=== PATIENT | female | born 1990 | race Caucasian/White ===

== ENCOUNTER 2025-02-13 16:17 | Outpatient (CLI) | payer BC, SELFPAY ==
--- NOTE | ~2025-02-13 | XR_ITS ---
EXAMINATION: XR chest 2V Exam Date/Time: 02/13/2025 16:29 CDT HISTORY: cough, CP to both sides of chest Comparison: None. RESULT: Lines, tubes, and devices: None. Lungs and pleura: Clear. Cardiomediastinal silhouette: Unremarkable. Other: No acute osseous or upper abdominal finding. IMPRESSION: No acute cardiopulmonary process. Reviewed, dictated and finalized at location K.
--- OUTSIDE RECORDS SUMMARY | 2025-02-13 16:27 | XMS_ITS | Data Portability ---
Author Organization [facility], Main Office Address [address] [place] [address] Assessment No assessment recorded. Plan of Treatment Reminders Order Date Submit Date Provider Last Modified By Organization Details Last Modified Time Details Appointments Sick/Acu te 2024 03:30P MARLENY Balderas Not available Not available Not available Follow Up 15 2024 08:00A MARLENY Balderas Not available Not available Not available Lab BMP, serum or plasma 2022 023 LEDY Not available 06/03/2023 11:45:29 lipid panel, serum 2022 023 LEDY Not available 06/03/2023 11:45:28 Referral None recorded . Procedures None recorded . Surgeries None recorded . Imaging XR, chest, 2 view 2024 025 [email or web address] [facility], [address] [place] [address] [place] [address], [address], 02/13/2025 16:56:58 electroc ardiogra m, routine ECG, 12 leads min 2024 025 ATHENAFAX [facility], [facility] [address] [place] [address], [address], 02/13/2025 17:00:51 Medication Orders lisinopr il 20 mg tablet 2024 025 LEDY [facility], [address] [place], [id number], 02/13/2025 17:12:22 buspiron e 10 mg tablet 2022 023 [email or web address] [facility], [address] , [place], [id number], 02/13/2025 16:28:17 Patient TargetsNo targets recorded. Patient InstructionsNo instructions recorded. Reason for Referral None Reported. Results Created Date Observation Date Name Description Value Unit Range Abnormal Flag Note LastModifiedBy Organization Detail LastModifiedTime 06/03/2006/03/2023 LIPID PANEL , STAND JOAO cholesterol, total 258 mg/dL <200 high Not Available [facility] [address] [address] [place], [address], 06/03/2023 11:45:28 06/03/2006/03/2023 LIPID PANEL , STAND JOAO HDL cholesterol 54 mg/dL > or = 50 normal Not Available [facility] [address], [address], 06/03/2023 11:45:28 06/03/2006/03/2023 LIPID PANEL , STAND JOAO triglyceride s 287 mg/dL <150 high If a non-f astin g speci men was colle cted, consi shantell repea t trigl yceri de testi ng on a fasti ng speci men if clini guanaco indic ated. Ray hammer et al. J. of Clin. Lipid ol. 2015; 9:129 -169. Not Available [facility] [address], [address], 06/03/2023 11:45:28 06/03/2006/03/2023 LIPID PANEL , STAND JOAO LDL-choleste rol 157 mg/dL _(fredy c) high Refer ence range : <100 Sheree able range <100 mg/dL for prima ry preve ntion ; <70 mg/dL for patie nts with CHD or diabe tic patie nts with > or = 2 CHD risk facto rs. LDL-C is now calcu lated using the [facility] n-Hop kins isac almanza, which is a valid ated novel kahlil lujante r accur acy than the Fried shivam equat ion in the estim ation of LDL-C . Patricia n SS et al. STEFANI. 2013; 310(1 9): 2061- 2068 (http ://ed ucati on.Qu geovanniPaola ranulfoThreatStream. com/f aq/FA Q164) Not Available [address] [address] [place], [address], 06/03/2023 11:45:28 06/03/2006/03/2023 LIPID PANEL , STAND JOAO chol/HDLC ratio 4.8 (calc ) <5.0 normal Not Available [address], [address], 06/03/2023 11:45:28 06/03/2006/03/2023 LIPID PANEL , STAND JOAO non HDL cholesterol 204 mg/dL _(fredy c) <130 high For patie nts with diabe familia plus 1 major ASCVD risk facto r, treat ing to a non-H DL-C goal of <100 mg/dL (LDL- C of <70 mg/dL ) is consi logan delacruz n. Not Available [address] [address] [place], [address], 06/03/2023 11:45:28 06/03/2006/03/2023 BASIC METAB OLIC PANEL glucose 126 mg/dL 65-99 high Fasti ng refer ence inter kristin For someo ne witho ut known diabe familia, a gluco se value >125 mg/dL indic ates that they may have diabe familia and this shoul d be confi rmed with a follo w-up test. Not Available [address], [address], 06/03/2023 11:45:29 06/03/20 23 06/03/2023 BASIC METAB OLIC PANEL urea nitrogen (BUN) 13 mg/dL 7-25 normal Not Available [facility] [address] [place], [address], 06/03/2023 11:45:29 06/03/20 23 06/03/2023 BASIC METAB OLIC PANEL creatinine 0.77 mg/dL 0.50-0 .97 normal Not Available [address], [address], 06/03/2023 11:45:29 06/03/20 23 06/03/2023 BASIC METAB OLIC PANEL eGFR 103 mL/mi n/1.7 3m2 > or = 60 normal Not Available [facility] [address], [address], 06/03/2023 11:45:29 06/03/20 23 06/03/2023 BASIC METAB OLIC PANEL BUN/creatini ne ratio SEE NOTE: (calc ) 6-22 Not Repor meagan: BUN and Creat inine are withi n refer ence range . Not Available [address], [address], 06/03/2023 11:45:29 06/03/20 23 06/03/2023 BASIC METAB OLIC PANEL sodium 137 mmol/ L 135-14 6 normal Not Available [address], [address], 06/03/2023 11:45:29 06/03/20 23 06/03/2023 BASIC METAB OLIC PANEL potassium 3.9 mmol/ L 3.5-5. 3 normal Not Available [address], [address], 06/03/2023 11:45:29 06/03/2006/03/2023 BASIC METAB OLIC PANEL chloride 102 mmol/ L 98-110 normal Not Available [address], [address], 06/03/2023 11:45:29 06/03/20 23 06/03/2023 BASIC METAB OLIC PANEL carbon dioxide 25 mmol/ L 20-32 normal Not Available [facility] [address] [place], [address], 06/03/2023 11:45:29 06/03/20 23 06/03/2023 BASIC METAB OLIC PANEL calcium 9.7 mg/dL 8.6-10 .2 normal Not Available [facility] [address] [address] , [place], [address], 06/03/2023 11:45:29 06/03/20 23 06/03/2023 CLIEN T EDUCA TION TRACK ING client education tracking The Requi sitio n we recei betty did not inclu de a [facility] accou nt numbe r. To preve nt delay s in testi ng and proce ssing of your order s pleas e provi de the follo wing infor matio n with every order submi tted: [facility] accou nt numbe r and accou nt name Clien t addre ss Clien t phone and fax numbe r NPI numbe r of order ing physi román along with the physi román name. NO COLLE CTION DATE RECEI BETTY. WE HAVE USED THE DATE THE SPECI MEN WAS RECEI BETTY BY THIS LABOR ATORY THE COLLE CTION DATE. IF THIS IS INCOR RECT, PLEAS E CONTA CT CLIEN T SERVI YAMEL. PHONE NUMBE R: [phone] Not Available [facility] [address] [place], [address], 06/03/2023 11:45:30 07/31/20 21 07/31/2021 HEMOG LOBIN A1C HA1C 5.2 % 4.0-6. 0 Diabe familia Scree ann Crite dionte: <5.7% Consi stent with absen ce of diabe familia 5.7-6 .4% Consi stent with incre ased risk for diabe familia (pred iabet es) >OR=6 .5% Consi stent with diabe familia REFER ENCE: Diabe familia Care 2016, 39(Lala ppl.1 ):s13 -s22 Not Available [facility] (Lab) [address] [place], [address], 07/31/2021 21:38:31 07/31/20 21 07/31/2021 TSH W/REF MARIA E FT4 TSH with reflex free T4 1.410 uIU/m L 0.465- 4.680 Not Available [facility] (Lab) [address] [place], [address], 07/31/2021 21:27:05 07/31/20 21 07/31/2021 VITAM IN D 25-HY DROXY [id number] 33.6 NG/mL 30-100 Vitam in D Statu s: Defic ient: <20 ng/mL Insuf ficie nt: 20-29 ng/mL Suffi cient : 30-10 0 ng/mL Not Available [facility] (Lab) [address] [place], [address], 07/31/2021 21:02:06 07/31/20 21 07/31/2021 LIPID PANEL cholesterol 234 mg/dL 140-19 9 high NIH HALIMA NSUS RECOM MENDA TION FOR BARBARA STERO L: ADULT CHILD LOW RISK: <200 <170 BORDE RLINE : <200- 239 ----- HIGH RISK: >240 >200 Not Available [facility] (Lab) [address] [place], [address], 07/31/2021 20:53:53 07/31/20 21 07/31/2021 LIPID PANEL triglyceride s 158 mg/dL 0-150 high NIH HALIMA NSUS REPOR T RECOM MENDA TION FOR TRIGL YCERI WILMAR: ADULT CHILD LOW RISK: <150 ----- BODER LINE: 150-1 99 ----- HIGH RISK: >200 ----- Not Available [facility] (Lab) [address] [place], [address], 07/31/2021 20:53:53 07/31/20 21 07/31/2021 LIPID PANEL HDL cholesterol 54 mg/dL 40- Not Available [facility] (Lab) [address] [place], [address], 07/31/2021 20:53:53 07/31/20 21 07/31/2021 LIPID PANEL LDL cholesterol, calculated 148 mg/dL 0-130 high NIH HALIMA NSUS REPOR T RECOM MENDA TIONS FOR LDL: ADULT CHILD LOW RISK <130 <110 (OPTI MAL LDL) <100 ----- BORDE RLINE : 130-1 59 ----- HIGH RISK: >160 >130 A TRIGL YCERI DE RESUL T >400 INVAL IDATE S THE CALCU LATIO N FOR LDL FRACT IONAT ION - THE LDL RESUL T WILL NOT BE REPOR MEAGAN. Not Available [facility] (Lab) [address] [place], [address], 07/31/2021 20:53:53 07/31/20 21 07/31/2021 COMPR EHENS ZO METAB OLIC PANEL sodium 136 mmol/ L 137-14 5 low Not Available [facility] (Lab) [address] [place], [address], 07/31/2021 20:53:50 07/31/20 21 07/31/2021 COMPR EHENS ZO METAB OLIC PANEL potassium 5.5 mmol/ L 3.5-5. 1 high Not Available [facility] (Lab) [address] [place], [address], 07/31/2021 20:53:50 07/31/20 21 07/31/2021 COMPR EHENS ZO METAB OLIC PANEL chloride 102 mmol/ L 98-107 Not Available [facility] (Lab) [address] [place], [address], 07/31/2021 20:53:50 07/31/20 21 07/31/2021 COMPR EHENS ZO METAB OLIC PANEL carbon dioxide 28 mmol/ L 22-30 Not Available [facility] (Lab) [address] [place], [address], 07/31/2021 20:53:50 07/31/20 21 07/31/2021 COMPR EHENS ZO METAB OLIC PANEL agap 11.5 mmol/ L 14-22 low Not Available [facility] (Lab) [address] [place], [address], 07/31/2021 20:53:50 07/31/20 21 07/31/2021 COMPR EHENS ZO METAB OLIC PANEL glucose 95 mg/dL 70-99 Not Available [facility] (Lab) [address] [place], [address], 07/31/2021 20:53:50 07/31/20 21 07/31/2021 COMPR EHENS ZO METAB OLIC PANEL BUN 10 mg/dL 8-19 Not Available [facility] (Lab) [address] [place], [address], 07/31/2021 20:53:50 07/31/20 21 07/31/2021 COMPR EHENS ZO METAB OLIC PANEL creatinine 0.74 mg/dL 0.66-1 .25 Not Available [facility] (Lab) [address] [place], [address], 07/31/2021 20:53:50 07/31/20 21 07/31/2021 COMPR EHENS ZO METAB OLIC PANEL GFR >60 Refer ence Range : [place] ge GFR Healt hy Adult : >60 mL/mi n/1.7 3 m2 Chron ic Kidne y Disea se: 15-60 mL/mi n/1.7 3 m2 Kidne y Failu re: <15/m L/min /1.73 m2 www.n iddk. nih.g ov MDRD study equat ion hasn' t been valid ated in child margoth <18 yrs of age, pregn ant women , the elder ly >85 yrs of age, or in some racia l or ethni c subgr oups, such as Hispa nics. Outsi de the valid ated ki eters , estim ated GFR is less accur ate requi ring clini fredy judgm ent on a case by case basis . Clini fredy inter preta tion for other races and ages must be made by the clini román . Futhe rmore , any of the limit ation s with the use of serum creat inine relat ed to nutri luanne l statu s or medic ation usage hasn' t accou nted for the MDRD Study equat ion. For perso ns <18 yrs of age, a pedia tric GFR calcu lator can be locat ed on the [facility] websi te: https ://elvia w.kid shani.o rg/pr ofess ional s/kdo qi/gf r_cal culat or Not Available [facility] (Lab) [address] [place], [address], 07/31/2021 20:53:50 07/31/20 21 07/31/2021 COMPR EHENS ZO METAB OLIC PANEL alkaline phosphatase 110 U/L 38-126 Not Available [facility] (Lab) [address] [place], [address], 07/31/2021 20:53:50 07/31/20 21 07/31/2021 COMPR EHENS ZO METAB OLIC PANEL alanine aminotransfe rase 22 U/L 0-35 Not Available [facility] (Lab) [address] [place], [address], 07/31/2021 20:53:50 07/31/20 21 07/31/2021 COMPR EHENS ZO METAB OLIC PANEL aspartate aminotransfe rase 30 U/L 15-37 Not Available [facility] (Lab) [address] [place], [address], 07/31/2021 20:53:50 07/31/20 21 07/31/2021 COMPR EHENS ZO METAB OLIC PANEL bilirubin, total 0.70 mg/dL 0.20-1 .30 Not Available [facility] (Lab) [address] [place], [address], 07/31/2021 20:53:50 07/31/20 21 07/31/2021 COMPR EHENS ZO METAB OLIC PANEL calcium 10.2 mg/dL 8.4-10 .2 Not Available [facility] (Lab) [address] [place], [address], 07/31/2021 20:53:50 07/31/20 21 07/31/2021 COMPR EHENS ZO METAB OLIC PANEL total protein 8.0 g/dL 6.3-8. 2 Not Available [facility] (Lab) [address] [place], [address], 07/31/2021 20:53:50 07/31/20 21 07/31/2021 COMPR EHENS ZO METAB OLIC PANEL albumin 4.5 g/dL 3.4-5. 0 Not Available [facility] (Lab) [address] [place], [address], 07/31/2021 20:53:50 07/31/20 21 07/31/2021 COMPR EHENS ZO METAB OLIC PANEL globulin 3.5 g/dL 2.6-4. 2 Not Available [facility] (Lab) [address] [place], [address], 07/31/2021 20:53:50 07/31/20 21 07/31/2021 COMPR EHENS ZO METAB OLIC PANEL A/G ratio 1.3 ratio 1.0-2. 0 Not Available [facility] (Lab) [address] [place], [address], 07/31/2021 20:53:50 07/31/20 21 07/31/2021 TEST NOT PERFO RMED tnp see commen t NO URINE SPECI MEN RECD Not Available [facility] (Lab) [address] [place], [address], 07/31/2021 20:08:02 07/31/20 21 07/31/2021 CBC/C OMPLE TE BLD COUNT W/DIF F white blood cells 10.9 x10'3 /uL 4.2-10 .8 high Not Available [facility] (Lab) [address] [place], [address], 07/31/2021 19:41:24 07/31/20 21 07/31/2021 CBC/C OMPLE TE BLD COUNT W/DIF F red blood cells 5.31 x10'6 /uL 3.80-5 .20 high Not Available [facility] (Lab) [address] [place], [address], 07/31/2021 19:41:24 07/31/20 21 07/31/2021 CBC/C OMPLE TE BLD COUNT W/DIF F hemoglobin 16.5 g/dL 12.0-1 5.6 high Not Available [facility] (Lab) [address] [place], [address], 07/31/2021 19:41:24 07/31/20 21 07/31/2021 CBC/C OMPLE TE BLD COUNT W/DIF F hematocrit 49.8 % 35.7-4 5.7 high Not Available [facility] (Lab) [address] [place], [address], 07/31/2021 19:41:24 07/31/20 21 07/31/2021 CBC/C OMPLE TE BLD COUNT W/DIF F mean red cell volume 93.8 fL 82.0-9 9.0 Not Available [facility] (Lab) [address] [place], [address], 07/31/2021 19:41:24 07/31/20 21 07/31/2021 CBC/C OMPLE TE BLD COUNT W/DIF F mean red cell hemoglobin 31.1 pg 27.0-3 3.0 Not Available [facility] (Lab) [address] [place], [address], 07/31/2021 19:41:24 07/31/20 21 07/31/2021 CBC/C OMPLE TE BLD COUNT W/DIF F mean RBC HGB concentratio n 33.1 g/dL 31.0-3 6.0 Not Available [facility] (Lab) [address] [place], [address], 07/31/2021 19:41:24 07/31/20 21 07/31/2021 CBC/C OMPLE TE BLD COUNT W/DIF F red cell distribution width 12.4 % 11.8-1 5.5 Not Available [facility] (Lab) [address] [place], [address], 07/31/2021 19:41:24 07/31/20 21 07/31/2021 CBC/C OMPLE TE BLD COUNT W/DIF F platelets 344 x10'3 /uL 150-40 0 Not Available [facility] (Lab) [address] [place], [address], 07/31/2021 19:41:24 07/31/20 21 07/31/2021 CBC/C OMPLE TE BLD COUNT W/DIF F mean platelet volume 10.5 fL 9.0-12 .4 Not Available [facility] (Lab) [address] [place], [address], 07/31/2021 19:41:24 07/31/20 21 07/31/2021 CBC/C OMPLE TE BLD COUNT W/DIF F neutrophils 73.0 % 39.0-7 2.0 high Not Available [facility] (Lab) [address] [place], [address], 07/31/2021 19:41:24 07/31/20 21 07/31/2021 CBC/C OMPLE TE BLD COUNT W/DIF F lymphocytes 18.9 % 16.0-4 7.0 Not Available [facility] (Lab) [address] [place], [address], 07/31/2021 19:41:24 07/31/20 21 07/31/2021 CBC/C OMPLE TE BLD COUNT W/DIF F monocytes 6.0 % 5.0-12 .0 Not Available [facility] (Lab) [address] [place], [address], 07/31/2021 19:41:24 07/31/20 21 07/31/2021 CBC/C OMPLE TE BLD COUNT W/DIF F eosinophils 0.9 % 1.0-7. 0 low Not Available [facility] (Lab) [address] [place], [address], 07/31/2021 19:41:24 07/31/20 21 07/31/2021 CBC/C OMPLE TE BLD COUNT W/DIF F basophils 0.6 % 0.0-2. 0 Not Available [facility] (Lab) [address] [place], [address], 07/31/2021 19:41:24 07/31/2007/31/2021 CBC/C OMPLE TE BLD COUNT W/DIF F immature granulocytes 0.6 % 0.00-0 .50 high Not Available [facility] (Lab) [address] [place], [address], 07/31/2021 19:41:24 07/31/20 21 07/31/2021 CBC/C OMPLE TE BLD COUNT W/DIF F neutrophils, absolute count 7.94 x10'3 /uL 1.5-8. 0 Not Available [facility] (Lab) [address] [place], [address], 07/31/2021 19:41:24 07/31/20 21 07/31/2021 CBC/C OMPLE TE BLD COUNT W/DIF F lymphocytes, absolute count 2.05 x10'3 /uL 1.07-3 .43 Not Available [facility] (Lab) [address] [place], [address], 07/31/2021 19:41:24 07/31/20 21 07/31/2021 CBC/C OMPLE TE BLD COUNT W/DIF F monocytes, absolute count 0.65 x10'3 /uL 0.29-0 .99 Not Available [facility] (Lab) [address] [place], [address], 07/31/2021 19:41:24 07/31/20 21 07/31/2021 CBC/C OMPLE TE BLD COUNT W/DIF F eosinophils, absolute count 0.10 x10'3 /uL 0.02-0 .53 Not Available [facility] (Lab) [address] [place], [address], 07/31/2021 19:41:24 07/31/20 21 07/31/2021 CBC/C OMPLE TE BLD COUNT W/DIF F basophils, absolute count 0.06 x10'3 /uL 0.01-0 .08 Not Available [facility] (Lab) [address] [place], [address], 07/31/2021 19:41:24 07/31/20 21 07/31/2021 CBC/C OMPLE TE BLD COUNT W/DIF F immature granulocytes ,absolute 0.06 x10'3 /uL 0.00-0 .05 high Not Available [facility] (Lab) [address] [place], [address], 07/31/2021 19:41:24 07/31/20 21 07/31/2021 CBC/C OMPLE TE BLD COUNT W/DIF F nucleated red blood cells 0.0 % -0 Not Available [facility] (Lab) [address] [place], [address], 07/31/2021 19:41:24 07/31/20 21 07/31/2021 CBC/C OMPLE TE BLD COUNT W/DIF F NRBC# 0.00 x10'3 /uL Not Available [facility] (Lab) [address], [place], [address], 07/31/2021 19:41:24 Result Notes None recorded. Problems Name Problem SNOMED Code Status Onset Date Resolution Date Notes Provider Name and Address Organization Details Recorded Time Hyperkalem ia 11620067 Active 2020 Not Available [facility] 3 07:30:24 Acute sinusitis 14642337 Completed Not Available [facility] 3 07:30:25 Pain in throat 778918217 Completed Not Available [facility] 3 07:30:25 Suppressio n of menstruati on Completed Not Available [facility] 3 07:30:25 Iron deficiency anemia of 808716933 Completed Not Available [facility] 3 07:30:25 Gastroesop hageal reflux disease 612222847 Completed Not Available [facility] 3 07:30:25 Overweight 187922043 Active 2020 Not Available [facility] 3 07:30:25 Tampon retained in vagina 393029478 Completed Not Available [facility] 3 07:30:25 Dog bite of hand 766166191 Completed Not Available [facility] 3 07:30:25 Hypertrigl yceridemia 171237837 Active 2020 Not Available [facility] 3 07:30:25 Acute urinary tract infection 086408205 Completed Not Available [facility] 3 07:30:26 Cough 22406098 Completed Sybil Ahuja MD [address] [facility], [facility] [address], [place], [address] , [facility] [employer] 3 17:56:43 Hyperlipid emia 22634086 Active 2020 Not Available [facility] 3 07:30:26 Posterior rhinorrhea 65705947 Completed Not Available [facility] 3 07:30:26 Smoker 35846967 Active 2020 Not Available [facility] 3 07:30:26 Irregular periods 16466115 Active Not Available [facility] 3 07:30:26 Generalize d aches and pains 46584424 Completed 201608/30/2019 Not Available [facility] 3 07:30:26 Elevated blood-pres sure reading without diagnosis of hypertensi on 825384518 Active 2022 Sybil Ahuja MD [address], [place], [address] , [employer] 3 10:10:02 Anxiety 95229428 Active 2022 Sybil Ahuja MD [address], [place], [address] , [employer] 3 10:19:52 Laceration of lower leg 516137387 Active 2022 Sybil Ahuja MD [address], [place], [address] , [employer] 3 10:23:48 Cough 60480495 Active 2022 Sybil Ahuja MD [address], [place], [address] , [employer] 3 17:56:43 Essential hypertensi on 19424699 Active 2024 MARLENY Keith [address], [address], [place], [address] , [employer] 5 16:48:17 Atypical chest pain 763398148 Active 2024 MARLENY Keith [address], [place], [address] , [employer] 5 16:51:11 Problem Notes None recorded. Procedures Surgical History Date Name Laterality Status Provider Name and Address Organization Details Recorded Time 09/09/20 REHABILITATION SERVICES MANAGER Procedure completed Not Available [facility] 2022 07:26:28 04/04/20 19 Date of Last Pap Smear completed Not Available [facility] 11/25/2022 07:26:26 11/27/19 16 Plastic Surgery completed Not Available [facility] 09/2022 07:26:28 09/13/20 15 REHABILITATION SERVICES MANAGER Procedure completed Not Available [facility] 2022 07:26:28 02/14/20 04 Colposcopy completed Not Available [facility] 07:26:28 Tonsillectomy completed Not Available [facility] 11/25/2022 07:26:28 extraction of wisdom tooth completed Sybil Ahuja MD [address] [facility], [facility] [address], [place], [address], [facility] [employer] 06/02/2023 10:06:40 Imaging Results None recorded. Procedure Notes None recorded. Medical Equipment None Reported. Allergies No known drug allergies Medications Name Sig Start Date Stop Date Status Note LastModified by Organization Details LastModified Time amoxicillin 500 mg capsule active Not Available Not Available Not Available Mirena 21 mcg/24 hr (up to 8 years) 52 mg intrauterin e device Take 1 device by intrauter ine route. active Not Available Not Available No t Available Augmentin 875 mg-125 mg tablet Take 1 tablet every 12 hours by oral route. 07/01 completed Not Available Not Available Not Available clindamycin HCl 300 mg capsule Take 1 capsule every 6 hours by oral route for 10 days. active Not Available Not Available No t Available azithromyci n 250 mg tablet take as directed on label. 02/13 completed Not Available Not Available Not Available Cytotec 200 mcg tablet Take 2 tablets every day by oral route for 1 day. active Not Available Not Available No t Available hydrocodone 5 mg-acetamin ophen 325 mg tablet active Not Available Not Available No t Available Celestone Soluspan 6 mg/mL suspension for injection active Not Available Not Available No t Available lisinopril 20 mg tablet Take 1 tablet every day by oral route as directed for 30 days. 2024 active Not Available Not Available Not Avai lable promethazin e 6.25 mg-codeine 10 mg/5 mL syrup Take 5 mL every 6-8 hours by oral route as directed for 10 days. active Not Available Not Available No t Available metronidazo le 500 mg tablet active Not Available Not Available Not Available amoxicillin 500 mg tablet Take 1 tablet every 12 hours by oral route for 10 days. active Not Available Not Available No t Available benzonatate 100 mg capsule Take 1 capsule 3 times a day by oral route as needed. active Not Available Not Available No t Available oseltamivir 75 mg capsule 04/16 completed Not Available Not Available Not Available ferrous sulfate 325 mg (65 mg iron) tablet Take 1 tablet twice a day by oral route. active Not Available Not Available No t Available buspirone 10 mg tablet TAKE 1 TABLET BY MOUTH TWICE DAILY NEEDED 02/13 completed Not Available Not Available Not Available ceftriaxone 500 mg solution for injection active [facility]#: [id number]- [id number]- 01/ XYLOC ROMEO: LOT#: [id number] EXP: 01/14 18 [facility]#: [id number] [id number] [phone] Not Available Not Available Not Available Pepcid 20 mg tablet Take 1 tablet twice a day by oral route. active Not Available Not Available No t Available fluticasone propionate 50 mcg/actuati on nasal spray,suspe nsion INHALE 1 SPRAY INTO EACH NOSTRIL TWICE DAILY 04/16 completed Not Available Not Available Not Available TriNessa (28) 0.18 mg(7)/0.215 mg(7)/0.25 mg(7)-35 mcg tablet active Not Available Not Available N ot Available nitrofurant oin monohydrate /macrocryst als 100 mg capsule TK 1 C PO Q 12 H FOR 7 DAYS 08/30 completed Not Available Not Available Not Available Mucinex DM 30 mg-600 mg tablet,exte nded release 12 hr Take 1 tablet every 12 hours by oral route as directed for 15 days. active Not Available Not Available No t Available Boostrix Tdap 2.5 Lf unit-8 mcg-5 Lf/0.5 mL intramuscul ar syringe 07/01 completed Not Available Not Available Not Available Mirena 02/23 completed Not Available Not Available Not Available 19 (with docusate) 29 mg iron-1 mg-25 mg tablet Take 1 tablet by oral route. active Not Available Not Available No t Available Vitals Date Recorded Body mass index (BMI) Body height Oxygen saturation Oxygen saturation in Arterial blood by Pulse oximetry Heart rate Respiratory rate Body temperature Body weight Systolic blood pressure Diastolic blood pressure Provider Name and Address Organization Details Last Updated DateTime 1 27.2 kg/m2 175.26 cm 99 % 99 % 94 /min 18 /min 98 [degF] 33452 g 130 mm[Hg] 80 mm[Hg] Not Available [facility] 3 07:26:40 Date Recorded Body weight Body mass index (BMI) Body height Body temperature Heart rate Oxygen saturation Oxygen saturation in Arterial blood by Pulse oximetry Systolic blood pressure Diastolic blood pressure Provider Name and Address Organization Details Last Updated DateTime 3 29382.8 9 g 25.4 kg/m2 175.26 cm 98.3 [degF] 101 /min 94 % 94 % 170 mm[Hg] 104 mm[Hg] Julianne Moreno RN [place] [facility] 3 09:45:23 Date Recorded Body weight Body mass index (BMI) Body height Body temperature Heart rate Respiratory rate Oxygen saturation Oxygen saturation in Arterial blood by Pulse oximetry Systolic blood pressure Diastolic blood pressure Provider Name and Address Organization Details Last Updated DateTime 5 04075.7 7 g 27.6 kg/m2 175.26 cm 98.4 [degF] 125 /min 24 /min 96 % 96 % 220 mm[Hg] 140 mm[Hg] Dorothy Grimaldo RN [place] [facility] 5 16:34:22 Social History Question Answer Notes LastModified by Organizat ion Details LastModified Time Tobacco Smoking Status Current Every Day Smoker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
--- OUTSIDE RECORDS SUMMARY | 2025-02-13 16:27 | XMS_ITS | Continuity of Care Document ---
Author Organization [place] [facility] [employer], [facility] Address [address] [place] [address] Assessment No assessment recorded. Plan of Treatment Reminders Order Date Submit Date Provider Last Modified By Organization Details Last Modified Time Details Appointments Sick/Acu te 2024 03:30P MARLENY Balderas Not available Not available Not available Follow Up 15 2024 08:00A MARLENY Balderas Not available Not available Not available Lab None recorded . Referral None recorded . Procedures None recorded . Surgeries None recorded . Imaging XR, chest, 2 view 2024 025 [email or web address] [facility], [address] [place] [address], [id number], 02/13/2025 16:56:58 electroc ardiogra m, routine ECG, 12 leads min 2024 025 [facility], [address] [place] [address], [id number], 02/13/2025 17:00:51 Medication Orders lisinopr il 20 mg tablet 2024 025 [facility], [address] [place] [place], [id number], 02/13/2025 17:12:22 Patient TargetsNo targets recorded. Patient InstructionsNo instructions recorded. Reason for Referral None Reported. Problems Name Problem SNOMED Code Status Onset Date Resolution Date Notes Provider Name and Address Organization Details Recorded Time Hyperkalem ia 46767443 Active 2020 Not Available [facility] 3 07:30:24 Acute sinusitis 81781358 Completed Not Available [facility] 3 07:30:25 Pain in throat 150145773 Completed Not Available [facility] 3 07:30:25 Suppressio n of menstruati on 002824197 Completed Not Available [facility] 3 07:30:25 Iron deficiency anemia of 944815390 Completed Not Available [facility] 3 07:30:25 Gastroesop hageal reflux disease 994982428 Completed Not Available [facility] 3 07:30:25 Overweight 965788379 Active 2020 Not Available [facility] 3 07:30:25 Tampon retained in vagina 733361896 Completed Not Available [facility] 3 07:30:25 Dog bite of hand 214575316 Completed Not Available [facility] 3 07:30:25 Hypertrigl yceridemia 612406872 Active 2020 Not Available [facility] 3 07:30:25 Acute urinary tract infection 129168313 Completed Not Available [facility] 3 07:30:26 Cough 24592907 Completed Sybil Ahuja MD [address] [place] [address], [phone] , [facility] [employer] [facility] 3 17:56:43 Hyperlipid emia 84682303 Active 2020 Not Available [facility] 3 07:30:26 Posterior rhinorrhea 47179643 Completed Not Available [facility] 3 07:30:26 Smoker 65410144 Active 2020 Not Available [facility] 3 07:30:26 Irregular periods 53062776 Active Not Available [facility] 3 07:30:26 Generalize d aches and pains 44475696 Completed 201608/30/2019 Not Available [facility] 3 07:30:26 Elevated blood-pres sure reading without diagnosis of hypertensi on 376279501 Active 2022 Sybil Ahuja MD [address], [place], [address] , [employer] 3 10:10:02 Anxiety 68492938 Active 2022 Sybil Ahuja MD [address], [place], [address] , [employer] 3 10:19:52 Laceration of lower leg 813722346 Active 2022 Sybil Ahuja MD [address], [place], [address] , [employer] 3 10:23:48 Cough 74736324 Active 2022 Sybil Ahuja MD [address], [place], [address] , [employer] 3 17:56:43 Essential hypertensi on 26183920 Active 2024 MARLENY Keith [address], [place], [address] , [employer] 5 16:48:17 Atypical chest pain 691880677 Active 2024 MARLENY Keith [address], [place], [address] , [employer] 5 16:51:11 Problem Notes None recorded. Procedures Surgical History Date Name Laterality Status Provider Name and Address Organization Details Recorded Time 09/09/20 20 GARBAGE DEPOT WORKER Procedure completed Not Available [facility] 2022 07:26:28 04/04/20 19 Date of Last Pap Smear completed Not Available [facility] 11/25/2022 07:26:26 11/27/19 16 Plastic Surgery completed Not Available [facility] 09/2022 07:26:28 09/13/20 15 [employer] DEPOT WORKER Procedure completed Not Available [facility] 2022 07:26:28 02/14/20 04 Colposcopy completed Not Available [facility] 3 07:26:28 Tonsillectomy completed Not Available [facility] 11/25/2022 07:26:28 extraction of wisdom tooth completed Sybil Ahuja MD [address] [facility], [facility] [address], [place], [address], [facility] 06/02/2023 10:06:40 Imaging Results None recorded. Procedure [...] ceftriaxone 500 mg solution for injection active [facility]#: [id number] 7338- 01/ XYLOC ROMEO: LOT#: [id number] EXP: 01/14 18 [facility]#: [id number] Not Available Not Available Not [...] No t Available Vitals Date Recorded Body weight Body mass index (BMI) Body height Body temperature Heart rate Respiratory rate Oxygen saturation Oxygen saturation in Arterial blood by Pulse oximetry Systolic blood pressure Diastolic blood pressure Provider Name and Address Organization Details Last Updated DateTime 5 67873.7 7 g 27.6 kg/m2 175.26 cm 98.4 [degF] 125 /min 24 /min 96 % 96 % 220 mm[Hg] 140 mm[Hg] Dorothy Grimaldo RN [place] [facility] [place] [employer] 5 16:34:22 Social History Question Answer Notes LastModified by Organizat ion Details LastModified Time Tobacco Smoking Status Current Every Day Smoker Not Available [facility] 11/25/2022 07:26:07 Do You Have An Advance Directive? No MIGRATION.[id number] Information not available 11/25/2022 Do You Wear A Helmet When Biking? No MIGRATION.846936 5177 Information not available 11/25/2022 What Is Your Level Of Caffeine Consumption? Moderate MIGRATION.793945 0317 Information not available 11/25/2022 In The 14 Days Before Symptom Onset, Have You Had Close Contact With A Laboratory-confirm ed COVID-19 While That Case Was Ill? No MIGRATION.500144 6903 Information not available 11/25/2022 In The 14 Days Before Symptom Onset, Have You Had Close Contact With A Person Who Is Under Investigation For COVID-19 While That Person Was Ill? No MIGRATION.394651 3732 Information not available 11/25/2022 What Type Of Diet Are You Following? REGULAR MIGRATION.866196 1266 Information not available 11/25/2022 Have There Been Any Changes To Your Family Or Social Situation? No MIGRATION.839606 8743 Information not available 11/25/2022 Are There Any Guns Present In Your Home? No MIGRATION.428376 8486 Information not available 11/25/2022 Do You Use Insect Repellent Routinely? No MIGRATION.461795 2376 Information not available 11/25/2022 Do You Have A Medical Power Of Senior Business Intelligence Analyst? No MIGRATION.982304 8995 Information not available 11/25/2022 What Was The Date Of Your Most Recent Tobacco Screening? 06/02/2023 [email or web address] Information not available 06/02/2023 Do You Have Any Pets? Yes MIGRATION.998931 0561 Information not available 11/25/2022 What Is Your Relationship Status? MIGRATION.109851 9928 Information not available 11/25/2022 Do You Use Your Seat Belt Or Car Seat Routinely? Yes MIGRATION.541976 4774 Information not available 11/25/2022 Do You Have Smoke And Carbon Monoxide Detectors In Your Home? Yes MIGRATION.447605 5289 Information not available 11/25/2022 At What Age Did You Start Smoking Tobacco? 12 MIGRATION.254388 0030 Information not available 11/25/2022 Are You Passively Exposed To Smoke? Yes MIGRATION.803261 0256 Information not available 11/25/2022 Are There Any Smokers In Your House? Yes MIGRATION.578890 6273 Information not available 11/25/2022 How Much Tobacco Do You Smoke? 1 PPD MIGRATION.838428 8601 Information not available 11/25/2022 Do You Participate In Social Media? Yes MIGRATION.404562 6996 Information not available 11/25/2022 Do You Use Sunscreen Routinely? Yes MIGRATION.015676 3486 Information not available 11/25/2022 Have You Recently Traveled Abroad? No MIGRATION.958693 8939 Information not available 11/25/2022 Sex: Female Functional Status Question Answer Note LastModified by Organizat ion Details LastModified Time Do you use any illicit or recreational drugs? No MIGRATION.7130084 026 Information not available 11/25/2022 Do you or have you ever used any other forms of tobacco or nicotine? No MIGRATION.1371565 026 Information not available 11/25/2022 What is your level of alcohol consumption? 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 Occasional MIGRATION.9141494 026 Information not available 11/25/2022 Mental Status Question Answer Note LastModified by Organizat ion Details LastModified Time Do you feel stressed (tense, restless, nervous, or anxious, or unable to sleep at night)? [id number] MIGRATION.[id number] 6 Information not available 11/25/2022 Family History Relationship Description Onset Age of this Age Resolved Age Notes LastModified by Organization Details LastModified Time Maternal Grandmother Heart disease MIGRATION.828 [id number] Not available 11/25/2022 07:26:29 Maternal Grandmother Diabetes mellitus MIGRATION.972 [id number] Not available 11/25/2022 07:26:29 Maternal Uncle Diabetes mellitus MIGRATION.285 [id number] Not available 11/25/2022 07:26:29 Maternal Uncle Viral hepatitis C MIGRATION.540 [id number] Not available 11/25/2022 07:26:29 Maternal Grandfather Primary malignant neoplasm of lung deceas ed MIGRATION.436 [id number] Not available 11/25/2022 07:26:29 Brother Viral hepatitis C MIGRATION.192 [id number] Not available 11/25/2022 07:26:29 Brother Disease of liver MIGRATION.540 1458908 Not available 11/25/2022 07:26:29 Maternal Aunt Malignant tumor of breast MIGRATION.956 [id number] Not available 11/25/2022 07:26:29 Medical History Condition Response BLINDNESS N RHEUMATIC FEVER N KIDNEY STONES N BLADDER PROBLEMS N MRSA N OTHER # 1 N POLIO N LUNG DISEASE/DISORDER N HISTORY OF DRUG ABUSE N RADIATION / CHEMOTHERAPY N COPD N Other # 2 N BLOOD DISEASES N SURGERY N EAR OR HEARING PROBLEMS N MUMPS N SHINGLES N FEMALE PROBLEMS / INFECTIONS N DEPRESSION (INCLUDING POST ) N BOWEL PROBLEMS N STROKE/TIA N THYROID DISEASE N ULCERS N BENIGN PROSTATIC HYPERPLASIA N MEASLES N CERVICALGIA N TB SKIN TEST N HYPOTENSION N MYOCARDIAL INFARCTION N PARAPELGIA N OBESITY [...] GLAUCOMA N FOOT PROBLEM N DIVERTICULITIS N SLEEP APNEA N CHICKENPOX N ALLERGIES/HAYFEVER N INFECTIOUS DISEASE N PROSTATE N HEART ARRHYTHMIA N INSOMNIA N HIGH CHOLESTEROL / HYPERLIPIDEMIA N EYE PROBLEMS N HYPERTHYROIDISM N EATING DISORDER N EDEMA N CHRONIC PAIN SYNDROME N CAROTID BLOCKAGE N CONSTIPATION N BACK / NECK PROBLEMS N HAVE YOU BEEN HOSPITALIZED OR SEEN IN [facility] IN THE PAST YEAR ? N [...] DISORDER N ALZHEIMER'S DISEASE N PAIN N DEMENTIA N HERPES N SEIZURES/EPILEPSY N HEADACHES/MIGRAINES N VASCULAR DISEASE N PACEMAKER N DIZZINESS N HEART DISEASE/HEART PROBLEMS N KIDNEY DISEASE N SCARLET FEVER N MULTIPLE SCLEROSIS N DEVELOPMENTAL OR BEHAVIORAL DISORDERS N MENTAL DISORDER/ILLNESS N CANCER: SPECIFY N CARDIAC ARRHYTHMIA N PNEUMONIA N ATRIAL FIBRILLATION N Gall [...] Time Tdap 06/02/2023 completed Sybil Ahuja MD [address] [place] [address], [address], [place] [facility] [employer] 06/02/2023 11:59:42 Tdap 09/29/2011 completed Not Available [facility] 11/25/2022 07:36:04 COVID-19 PS Non-US Vaccine (EpiVacCorona ) 12/27/2020 completed Not Available [facility] 3 07:36:05 COVID-19 PS Non-US Vaccine (EpiVacCorona ) 12/06/2020 completed Not Available [facility] 3 07:36:05 Past Encounters Encounter ID Performer Location Encounter Start Date Encounter Closed Date Diagnosis/Indication Diagnosis SNOMED-CT Code Diagnosis ICD10 Code Diagnosis Note [id number] MARLENY Keith [facility] [address] [address] 02/13/2025 16:17:26 02/13/2025 16:56:58 Essential hypertension 76678740 I10 Uncontroll edAdvised to take 1/2 tab x 1 week then increase to 1 tab daily Atypical chest pain 1025 86075 R07.89 Dull ache, associated fatigue, tingling in arms, left arm pain Health Concerns Section Related Observation LastModified by Organization Detai ls LastModified Time None Recorded Concern Status LastModified by Organization Details LastModified Time None Recorded Payers Encounter Date Sequence Insurance Name Policy Number Policy [employer] Covered Member ID [place] Member ID Guarantor Name 02/13/2025 1 [place] [id number] Ariella Keitholl [id number] Ariella Abbie Evgeny Notes Date Note Type Note Provider Name and Address Organization Details Recorded Time 02/13/2025 text/html Ariella Pepper is a 35 year old female [...] Her BP on arrival 220/140. Marta Ramirez, ELECTRIC ARC FURNACE OPERATOR [address] [facility], [facility] [address], [place], [address], [place] [facility] 02/13/2025 16:57:35 OBGyn Episode No OBEpisode recorded.
== END 2025-02-13 16:18 | disposition home or self-care (01) ==
PROVIDERS: PCP Family Medicine
DX: R05.9 Cough, unspecified (principal); R07.89 Other chest pain
CPT/HCPCS: 71046

== ENCOUNTER 2025-02-14 08:32 | Emergency (ER) | payer BC, SELFPAY ==
--- NOTE | 2025-02-14 08:34 | ECG_ITS ---
Test Date: 2025-02-14 08:41:51 Measurements Intervals [place] Rate: 109 P: 72 [place]: 108 QRS: 47 QRSD: 82 T: -16 QT: 342 QTc: 462 Interpretive Statements SINUS TACHYCARDIA WITH SHORT MI INTERVAL NONSPECIFIC ST & T-WAVE ABNORMALITY ABNORMAL ECG No previous ECG available for comparison Electronically Signed On 02-14-2025 13:11:50 CDT by Alex Fontenot M.D.
[2025-02-14 08:36] VITALS: BP 174/105; PULSE 116; RESP 16; O2SAT 99
[2025-02-14 08:40] VITALS: PULSE 106
[2025-02-14 08:57] LABS: Basophils Percent Auto 0.3 % (0.2-1.2); Eosinophils Percent Auto 0.1 % (0-4.4); Hematocrit 48.2 % (37.0-47.0); Hemoglobin 16.3 g/dL (12.0-15.0); Immature Granulocyte Absolute 0.06 K/mm3 (0.00-0.031); Immature Granulocyte Percent A 0.5 % (0-0.5); Lymphocytes Absolute Auto 1.82 K/mm3 (0.9-3.2); Lymphocytes Percent Auto 14.3 % (18.3-44.2); Mean Corpuscular HGB Conc 33.8 g/dl (32-36); Mean Corpuscular Hemoglobin 30.4 pg (26-34); Mean Corpuscular Volume 89.9 fl (80-100); Mean Platelet Volume 9.1 fl (7.4-10.4); Monocytes Absolute Auto 0.8 K/mm3 (0.1-0.6); Monocytes Percent Auto 6.1 % (2.6-8.5); Neutrophils Percent Auto 78.7 % (45.5-73.1); Platelet Count Result 348 k/mm3 (150-375); Red Blood Count 5.36 M/mm3 (4.2-5.4); Red Cell Distribution Width 12.7 % (11.5-14.5); White Blood Count 12.7 K/mm3 (4.5-10.0)
[2025-02-14 09:06] LABS: Alanine Aminotransferase 29 U/L (6-35); Albumin Level 4.9 g/dL (3.5-5.1); Alkaline Phosphatase 126 U/L (38-126); Anion Gap 9 mmol/L (4-12); Aspartate Amino Transferase 36 U/L (14-36); Bilirubin,Total 1.5 mg/dL (0.2-1.3); Blood Urea Nitrogen 10 mg/dL (7-17); Calcium 9.4 mg/dL (8.4-10.2); Carbon Dioxide 21 mmol/L (22-30); Chloride 107 mmol/L (98-107); Estimated CRCL calculation 98 ml/min; Estimated Glomerular Filt Rate > 60; Glucose 125 mg/dL (65-110); Lipase 76 U/L (23-300); Potassium 3.8 mmol/L (3.4-5.0); Sodium 137 mmol/L (137-145)
[2025-02-14 09:11] LABS: Prothrombin Time 13.2 Seconds (11.1-14.7)
[2025-02-14 09:18] LABS: Troponin I < 0.012 ng/mL (0.000-0.034)
--- NOTE | 2025-02-14 09:25 | PC.NURSE ---
called lab and added on D-dimer at this time.
[2025-02-14] MEDS: SODIUM CHLORIDE 0.9% IV 1,000 ML 999 ML IV CONT (09:28)
[2025-02-14] MEDS: KETOROLAC 30 MG/ML VIAL (*BKC) IV PUSH (09:28)
[2025-02-14 09:37] LABS: D Dimer < 0.27 ug/mL (<0.48)
[2025-02-14 10:24] VITALS: BP 149/85; PULSE 82; RESP 12; O2SAT 98
--- NOTE | 2025-02-14 11:47 | ECG_ITS ---
Test Date: 2025-02-14 12:04:34 Measurements Intervals [place] Rate: 78 P: 64 [place]: 142 QRS: 30 QRSD: 85 T: 4 QT: 388 QTc: 444 Interpretive Statements SINUS RHYTHM NONSPECIFIC ST AND T-WAVE ABNORMALITY ABNORMAL ECG Electronically Signed On 02-14-2025 13:20:45 CDT by Alex Fontenot M.D.
[2025-02-14 12:16] LABS: Troponin I < 0.012 ng/mL (0.000-0.034)
--- NOTE | 2025-02-14 12:27 | ED_ITS ---
HPI - Chest Pain General Chief Complaint: Chest Pain Stated Complaint: cp, dizzy, n/v, high bp Time Seen by Provider: 02/14/25 08:35 History of Present Illness HPI narrative: Patient is thus 35-year-old female who presents ER with multiple issues. Reports she has had a cold for few days and started developed some chest discomfort after coughing. Worse with palpation and physical movements. Has occasional dizziness so she with nausea. She will occasionally get flushed and have some chest discomfort as well similar to anxiety. No known sick contacts. No history of heart disease. She is not coughing up blood. No additional concerns. Related Data Allergies Allergy/AdvReac Type Severity Reaction Status Date / Time No Known Allergies Allergy Verified 02/14/25 08:44 Review of Systems 2 Review of Systems: All systems reviewed & are unremarkable except as noted in HPI and below Constitutional: Constitutional: Reports no additional constitutional complaints Cardiovascular: Cardiovascular: Reports no additional cardiovascular complaints Respiratory: Respiratory: Reports no additional respiratory complaints Gastrointestinal: Gastrointestinal: Reports no additional gastrointestinal complaints Musculoskeletal: Musculoskeletal: Reports no additional musculoskeletal complaints Neurologic: Reports system reviewed and no additional complaints, except as documented Exam 2 Narrative: GENERAL: Well-appearing, well-nourished, and in no acute distress. HEAD: Normocephalic, atraumatic. ENT: Mucous membranes moist. TMs normal bilaterally. Ear canals free of cerumen. CHEST: Clear to auscultation. No respiratory distress. HEART: Regular rate and rhythm. Normal peripheral pulses. ABDOMEN: Soft, nontender, nondistended. EXTREMITIES: Normal range of motion. No edema. SKIN: Warm, dry, no rash. NEURO: Alert and oriented x3. PSYCH: Normal mood and affect. Course Course Emergency Course: Patient resting comfortably. Pain improved with Toradol. Discussed lab and imaging results. Appropriate for discharge home. Will give some meclizine for dizziness. Vital Signs Vital signs: Vital Signs Pulse Rate 116 H 02/14/25 08:36 Respiratory Rate 16 02/14/25 08:36 Blood Pressure 174/105 H 02/14/25 08:36 Pulse Oximetry 99 02/14/25 08:36 Oxygen Delivery Room Air 02/14/25 08:36 Pulse Rate 82 02/14/25 10:24 Respiratory Rate 12 02/14/25 10:24 Blood Pressure 149/85 H 02/14/25 10:24 Pulse Oximetry 98 02/14/25 10:24 Oxygen Delivery Room Air 02/14/25 08:36 MDM - Chest Pain Lab Data 02/14/25 08:50 02/14/25 08:50 Labs: Lab Results 02/14/25 02/14/25 Range/Units 08:50 11:44 WBC 12.7 H (4.5-10.0) K/mm3 RBC 5.36 (4.2-5.4) M/mm3 Hgb 16.3 H (12.0-15.0) g/dL Hct 48.2 H (37.0-47.0) % MCV 89.9 (80-100) fl MCH 30.4 (26-34) pg MCHC 33.8 (32-36) g/dl RDW 12.7 (11.5-14.5) % Plt Count 348 (150-375) k/mm3 MPV 9.1 (7.4-10.4) fl Immature Gran % (Auto) 0.5 (0-0.5) % Neut % (Auto) 78.7 H (45.5-73.1) % Lymph % (Auto) 14.3 L (18.3-44.2) % [place] % (Auto) 6.1 (2.6-8.5) % Eos % (Auto) 0.1 (0-4.4) % Baso % (Auto) 0.3 (0.2-1.2) % Lymph # (Auto) 1.82 (0.9-3.2) K/mm3 [place] # (Auto) 0.8 H (0.1-0.6) K/mm3 Eos # (Auto) 0.0 (0-0.3) K/mm3 Baso # (Auto) 0.0 (0.0-0.1) K/mm3 Abs Immat Gran (auto) 0.06 H (0.00-0.031) K/mm3 Absolute Neuts (auto) 10.0 H (1.3-6.7) K/mm3 Absolute Nucleated RBC 0.000 (0.0-0.012) K/mm3 Nucleated RBC % 0.0 (0.0-0.2) % PT 13.2 (11.1-14.7) Seconds INR 1.0 APTT 26.0 (22.3-36.8) Seconds D-Dimer < 0.27 (<0.48) ug/mL Sodium 137 (137-145) mmol/L Potassium 3.8 (3.4-5.0) mmol/L Chloride 107 (98-107) mmol/L Carbon Dioxide 21 L (22-30) mmol/L Anion Gap 9 (4-12) mmol/L BUN 10 (7-17) mg/dL Creatinine 0.71 (0.7-1.0) mg/dL Estim Creat Clear Calc 98 ml/min Estimated GFR > 60 (59 - ) Glucose 125 H (65-110) mg/dL Calcium 9.4 (8.4-10.2) mg/dL Total Bilirubin 1.5 H (0.2-1.3) mg/dL AST 36 (14-36) U/L ALT 29 (6-35) U/L Alkaline Phosphatase 126 (38-126) U/L Troponin I < 0.012 < 0.012 (0.000-0.034) ng/mL Total Protein 8.0 (6.3-8.2) g/dL Albumin 4.9 (3.5-5.1) g/dL Lipase 76 (23-300) U/L ECG Data EKG #1: ECG completion date: 02/14/25 ECG completion time: 12:04 EKG Interpretation: normal rate (78), sinus rhythm, non-specific ST changes, normal QRS, normal QT and NL axis Discharge Plan Discharge Clinical Impression: Pleurisy, Vertigo Patient Disposition: Home Condition: Stable Instructions: Antibiotic Form, Pleurisy (ED), Vertigo (ED) Additional Instructions: Return the ER if you have fever over 100.4? F, you can not keep down food or water, you lose consciousness, or you have additional concerns. Patient Language: Yakut Prescriptions: New meclizine 25 mg tablet 25 mg PO TID PRN (Reason: motion sickness) Qty: 14 0RF naproxen 375 mg tablet 375 mg PO BID Qty: 14 0RF Follow-up/Referrals: Ilia,MD Sarath [Primary Care Provider] - 1 Week
== END 2025-02-14 12:50 | disposition home or self-care (01) ==
PROVIDERS: Emergency Provider Emergency Medicine; PCP Family Medicine
DX: R09.1 Pleurisy (principal); R42 Dizziness and giddiness; R00.0 Tachycardia, unspecified; R94.31 Abnormal electrocardiogram [ECG] [EKG]
CPT/HCPCS: 36415; 80053; 83690; 84484; 85025; 85380; 85610; 85730; 93005; 96361; 96374; 99284; J1885; J7030